=== PATIENT | female | born 2000 | race Caucasian/White ===

== ENCOUNTER → 2021-01-11 08:35 | Outpatient (CLI) | payer OTHER, MEDICAID, SELFPAY | PROVIDERS: Visit Provider Physician Assistant | DX: N89.8 Other specified noninflammatory disorders of vagina (principal); R30.0 Dysuria | CPT/HCPCS: 87086; 87210 ==

== ENCOUNTER → 2021-02-10 16:55 | Outpatient (CLI) | payer OTHER, MEDICAID, SELFPAY | PROVIDERS: Referring Provider Student in an Organized Health Care Education/Training Program; Visit Provider Student in an Organized Health Care Education/Training Program | DX: N39.0 Urinary tract infection, site not specified (principal); R30.9 Painful micturition, unspecified | CPT/HCPCS: 81002; 87086; 87210 ==

== ENCOUNTER → 2021-05-07 09:39 | Outpatient (CLI) | payer OTHER, SELFPAY ==
--- NOTE | 2021-05-07 09:52 | DI.RAD.S_ITS ---
PROCEDURE: XR LUMBAR SPINE 2-3V INDICATIONS: LUMBAR PAIN TECHNIQUE: 2 views of the lumbar spine were acquired. COMPARISON: None. FINDINGS: Bones: 5 [id number] vertebrae are present. There is normal bony alignment. No vertebral body compression fractures. No suspicious bony lesions. The disc space heights are maintained. Soft tissues: Overlying bowel gas pattern is normal. No suspicious soft tissue calcifications. IMPRESSION: No acute osseous abnormality. Dictated by: Angel Lovett M.D. on 05/07/2021 at 10:17 Approved by: Angel Lovett M.D. on 05/07/2021 at 10:21
== END ==
PROVIDERS: PCP Family Medicine; Referring Provider Family Medicine; Visit Provider Family Medicine
DX: M54.50 Low back pain, unspecified (principal)
CPT/HCPCS: 72100

== ENCOUNTER → 2021-05-17 15:36 | Outpatient (CLI) | payer OTHER, MEDICAID, SELFPAY | PROVIDERS: PCP Family Medicine; Referring Provider Physician Assistant; Visit Provider Physician Assistant | DX: R30.9 Painful micturition, unspecified (principal); N89.8 Other specified noninflammatory disorders of vagina | CPT/HCPCS: 81002; 81025; 87086; 87210 ==

== ENCOUNTER 2021-09-11 12:47 | Emergency (ER) | payer OTHER, MEDICAID, SELFPAY ==
[2021-09-11 12:50] VITALS: BP 135/63; PULSE 86; RESP 18; TEMP 36.4; O2SAT 98; BMI 31.1
[2021-09-11 14:06] LABS: Add Manual Diff / Slide Review NO; Basophils Absolute Auto 0 /uL (0-100); Basophils Percent Auto 0.4 % (0-2); Eosinophils Absolute Auto 300 /uL (0-450); Eosinophils Percent Auto 3.5 % (2-4); Hematocrit 36.9 % (36-46); Hemoglobin 12.5 g/dL (12.0-16.0); Lymphocytes Absolute Auto 2000 /uL (1100-4500); Lymphocytes Percent Auto 20.9 % (25-40); Mean Corpuscular HGB Conc 33.8 % (30-36); Mean Corpuscular Hemoglobin 27.9 PG (26-34); Mean Corpuscular Volume 82.3 fL (80-100); Monocytes Absolute Auto 900 /uL (0-900); Monocytes Percent Auto 9.3 % (3-14); Neutrophils Absolute Auto 6300 /uL (1500-7000); Neutrophils Percent Auto 65.9 % (50-75); Platelet Count 256 X10^3/uL (150-400); Red Blood Cell Count 4.49 X10^6/uL (4.0-5.2); White Blood Cell Count 9.5 X10^3/uL (4.5-11.0)
[2021-09-11 14:13] LABS: Alanine Aminotransferase 37 IU/L (<35); Albumin 4.3 g/dL (3.5-5.0); Albumin Globulin Ratio 1.5 (1.0-2.8); Alkaline Phosphatase 52 U/L (38-126); Aspartate Aminotransferase 36 IU/L (14-36); Bilirubin Total 0.2 mg/dL (0.2-1.3); Blood Urea Nitrogen 9 mg/dL (7-17); Calcium 9.3 mg/dL (8.4-10.2); Carbon Dioxide 28 mmol/L (22-32); Chloride 108 mmol/L (98-107); Estimated Glomerular Filt Rate > 60.0 mL/min (>60); Globulin 2.9 g/dL (1.7-4.1); Glucose 92 mg/dL (70-100); HEMOLYSIS < 15 (0-50); Lipase 79 U/L (23-300); Potassium 3.9 mmol/L (3.4-5.1); Sodium 140 mmol/L (137-145); Total Protein 7.2 g/dL (6.3-8.2)
--- NOTE | 2021-09-11 14:14 | DI.US.S_ITS ---
PROCEDURE: US PELVIC COMPLETE INDICATIONS: LLQ PAIN TECHNIQUE: Real-time scanning was performed of the pelvic organs, with image documentation. Additional endovaginal scanning was necessary due to incomplete visualization of the adnexal and endometrial structures by transabdominal scanning. COMPARISON: None. FINDINGS: Uterus: Uterus is retroverted and normal in size at 6.2 x 4.2 x 5.3 cm. The myometrium is homogeneous. No discrete uterine fibroids. The endometrium measures 15.6 mm combined thickness. No gross endometrial mass or fluid is seen. Ovaries: The right ovary measures 3.8 x 2.9 x 2.6 cm. The left ovary measures 4.2 x 3.1 x 3.5 cm. The ovaries have a normal sonographic appearance. 2 x 1.4 x 1.4 cm simple cyst is seen in right ovary. Multiple left ovarian cysts are seen measures up to 3.4 x 2.4 x 1.9 cm in size. Less than 12 follicles can be seen in each ovary. No adnexal masses are seen. Other: No pathologic free abdominal or pelvic fluid. IMPRESSION: Bilateral ovarian cysts as above. No solid appearing ovarian lesion. No evidence of ovarian torsion. Normal appearing uterus and endometrium. We strive to produce accurate, complete, and clear reports of imaging services. To assist us in improving patient care, this report was composed using standard report templates and voice recognition software. Therefore, it may contain abnormal punctuation, insertions and/or omissions. Occasional wrong-word or sound-alike substitutions may occur. Though we review the report and make efforts to correct it, we do recommend that the report be read carefully in proper context to recognize any text inaccuracies. Dictated by: Victoriano Good M.D. on 09/11/2021 at 15:23 Approved by: Victoriano Good M.D. on 09/11/2021 at 15:25
[2021-09-11 14:15] LABS: RBC Urine 0-1/HPF (0-5/HPF); Squamous Epithelial Cell Urine 5-10 /HPF (0-5/HPF); WBC Urine 5-10/HPF (0-5/HPF)
--- NOTE | 2021-09-11 14:15 | ED_ITS ---
HPI - Abdominal Pain <Renzo Weiss PA-C - Last Filed: 09/11/21 20:03> General Chief Complaint: Abdominal Pain Stated Complaint: Abd pain, bleeding out of rectum Time Seen by Provider: 09/11/21 13:40 Source: patient Mode of arrival: Ambulatory History of Present Illness HPI narrative: Patient is a 20-year-old female presenting to the emergency department today for an evaluation of abdominal pain and rectal bleeding. Patient states that she has experienced intermittent episodes of rectal bleeding since she was 15 years old, stating that she has not found a definitive cause of the bleeding. She also notes she has experienced intermittent episodes of abdominal pain for a number of years. She explains that she usually associated her increased rectal bleeding with herpes outbreaks, however she states that she is not experiencing an acute herpes flare at the moment. She states that she has also experienced nausea and vomiting this morning, noting that she experienced multiple episodes of nonbloody nonbilious emesis today. She denies fever, chills, chest pain, cough, shortness of breath, diarrhea, constipation, dysuria, hematuria, hematemesis, or any other concerning symptoms. No further concerns were voiced this time. Related Data Home Medications Medication Instructions Recorded Confirmed fluticasone propionate 50 1 spray INTRANASAL DAILY 01/11/21 05/17/21 mcg/actuation nasal spray,suspension loratadine 10 mg tablet (Claritin) 10 mg PO DAILY 01/11/21 05/17/21 methocarbamol 750 mg tablet 750 mg PO TID 01/11/21 05/17/21 oxycodone 5 mg tablet 5 mg PO BID PRN 01/11/21 05/17/21 Allergies Allergy/AdvReac Type Severity Reaction Status Date / Time Penicillins AdvReac Intermediate Verified 09/11/21 13:02 Review of Systems <Renzo Weiss PA-C - Last Filed: 09/11/21 20:03> Constitutional Constitutional: Denies chills, Denies fatigue, Denies fever(s), Denies frequent falls, Denies lethargy and Denies weakness Eyes Eyes: Denies loss of vision ENT Ears, Nose, Mouth, and Throat: Denies dizziness and Denies neck pain Cardiovascular Cardiovascular: Denies chest pain, Denies irregular heart rhythm, Denies lightheadedness, Denies palpitations, Denies dyspnea, Denies dyspnea on exertion and Denies orthopnea Respiratory Respiratory: Denies cough, Denies dyspnea, Denies dyspnea on exertion and Denies wheezing Gastrointestinal Gastrointestinal: Reports abdominal pain, Denies change in bowel habits, Denies diarrhea, Reports nausea, Reports vomiting, Denies hematemesis and Reports other (Rectal bleeding, LISA guaiac-positive) Genitourinary Genitourinary: Denies hematuria, Denies flank pain, Denies urinary incontinence and Denies urinary urgency Musculoskeletal Musculoskeletal: Denies back pain, Denies muscle weakness, Denies neck pain, Denies numbness and Denies tingling Integumentary/Breasts Skin/Breast: Denies pruritus, Denies erythema, Denies rash and Denies wounds Neurologic Neurologic: Denies behavioral changes, Denies confusion, Denies dizziness, Denies frequent falls, Denies loss of vision, Denies numbness, Denies tingling and Denies weakness Psychiatric Psychiatric: Denies behavioral changes and Denies confusion Endocrine Endocrine: Denies fatigue and Denies palpitations Allergic/Immunologic Allergic/Immunologic: Denies wheezing Patient History <Renzo Weiss PA-C - Last Filed: 09/11/21 20:03> Social History Smoking Status: Never smoker Smoking Status: Never smoker Substance Use Type: does not use Exam <Renzo Weiss PA-C - Last Filed: 09/11/21 20:03> Narrative Exam Narrative: GENERAL: 20 year old patient appears stated age. Well-developed patient, in no acute distress. HEAD: Atraumatic. Normocephalic. EYES: Pupils equal round and reactive. Extraocular motions intact. No scleral icterus. No injection or drainage. ENT: Nose without bleeding, purulent drainage. Throat without erythema, tonsillar hypertrophy or exudate. Airway patent. NECK: Trachea midline. Non tender CARDIOVASCULAR: Regular rate and rhythm without murmurs, gallops, or rubs. RESPIRATORY: Clear to auscultation. Breath sounds equal bilaterally. No wheezes, rales, or rhonchi. GASTROINTESTINAL: Abdomen soft, nondistended. Mild tenderness to palpation appreciated on the left lower quadrant of the abdomen and suprapubic area. No masses appreciated. Negative fluid wave, no splenomegaly or hepatomegaly. EXTREMITIES: No edema or joint tenderness. BACK: Nontender without deformity or crepitance. No flank tenderness. NEURO: AOx3. SKIN: No rash or erythema of visible areas Initial Vital Signs Initial Vital Signs: Vital Signs Temperature 97.6 F 09/11/21 12:50 Pulse Rate 86 09/11/21 12:50 Respiratory Rate 18 09/11/21 12:50 Blood Pressure 135/63 09/11/21 12:50 Pulse Oximetry 98 09/11/21 12:50 Course <Renzo Weiss PA-C - Last Filed: 09/11/21 20:03> Course Course Narrative: CBC, CMP, lipase, urinalysis, pelvic ultrasound ordered. Discussed results of ultrasound with patient informed her that she does have bilateral ovarian cysts. Discussed importance of following up with primary care and OBGYN. Orders Ordered: ED Orders 09/11/21 13:12 Complete Blood Count AUTO DIFF Stat Comprehensive Metabolic Panel Stat Lipase Stat 09/11/21 14:03 Urine Microscopic Stat 09/11/21 14:14 US pelvic complete Stat Vital Signs Vital signs: Vital Signs - 8 hr 09/11/21 12:50 09/11/21 16:05 Temperature 97.6 F Pulse Rate 86 79 Respiratory Rate 18 Blood Pressure 135/63 133/82 Pulse Oximetry 98 98 MDM - Abdominal Pain <Renzo Weiss PA-C - Last Filed: 09/11/21 20:03> Lab Data Result diagrams: 09/11/21 13:12 09/11/21 13:12 Labs: Lab Results 09/11/21 09/11/21 09/11/21 Range/Units 13:12 13:12 14:03 WBC 9.5 (4.5-11.0) X10^3/uL RBC 4.49 (4.0-5.2) X10^6/uL Hgb 12.5 (12.0-16.0) g/dL Hct 36.9 (36-46) % MCV 82.3 (80-100) fL MCH 27.9 (26-34) PG MCHC 33.8 (30-36) % RDW 13.0 (11.6-14.8) % Plt Count 256 (150-400) X10^3/uL Neut % (Auto) 65.9 (50-75) % Lymph % (Auto) 20.9 L (25-40) % [place] % (Auto) 9.3 (3-14) % Eos % (Auto) 3.5 (2-4) % Baso % (Auto) 0.4 (0-2) % Neut # (Auto) 6300 (0813-4314) /uL Lymph # (Auto) 2000 (1547-8954) /uL [place] # (Auto) 900 (0-900) /uL Eos # (Auto) 300 (0-450) /uL Baso # (Auto) 0 (0-100) /uL Sodium 140 (137-145) mmol/L Potassium 3.9 (3.4-5.1) mmol/L Chloride 108 H (98-107) mmol/L Carbon Dioxide 28 (22-32) mmol/L BUN 9 (7-17) mg/dL Creatinine 0.75 (0.52-1.04) mg/dL Estimated GFR > 60.0 (>60) mL/min BUN/Creatinine Ratio 12.0 (6-22) Glucose 92 (70-100) mg/dL Calcium 9.3 (8.4-10.2) mg/dL Total Bilirubin 0.2 (0.2-1.3) mg/dL AST 36 (14-36) IU/L ALT 37 H (<35) IU/L Alkaline Phosphatase 52 (38-126) U/L Total Protein 7.2 (6.3-8.2) g/dL Albumin 4.3 (3.5-5.0) g/dL Globulin 2.9 (1.7-4.1) g/dL Albumin/Globulin Ratio 1.5 (1.0-2.8) Lipase 79 (23-300) U/L Urine RBC 0-1/hpf (0-5/HPF) Urine WBC 5-10/hpf H (0-5/HPF) Ur Squamous Epith Cells 5-10 /hpf H (0-5/HPF) Urine Bacteria Moderate (10-30) H (None) Ur Culture Indicated? Cult not indicated Point of care testing: Point of Care Testing Test Results Negative Urine Dip Bedside Urine Glucose Negative Bedside Urine Bilirubin - Negative Bedside Urine Ketone - Negative Urine Specific [place] 1.015 Bedside Urine Occult Blood - Negative Bedside Urine pH 6.5 Bedside Urine Protein - Negative Bedside Urine Urobilinogen - Negative Bedside Urine Nitrite - Negative Bedside Urine Leukocytes +/- 15 Esterase Imaging Data US - SUPERVISOR TRAIN OPERATIONS: Radiologist's Impression: PROCEDURE:? US PELVIC COMPLETE ? INDICATIONS:? LLQ PAIN ? TECHNIQUE:? Real-time scanning was performed of the pelvic organs, with image documen tation.? Additional endovaginal scanning was necessary due to incomplete visualization of the adnexal and endometrial structures by transabdominal scanning.? ? COMPARISON:? None. ? FINDINGS:? ?? Uterus:? Uterus is retroverted and normal in size at 6.2 x 4.2 x 5.3 cm. The myometrium is homogeneous.? No discrete uterine fibroids.? The endometrium measures 15.6 mm combined thickness.? No gross endometrial mass or fluid is seen. ? Ovaries:? The right ovary measures 3.8 x 2.9 x 2.6 cm.? The left ovary measures 4.2 x 3.1 x 3.5 cm. The ovaries have a normal sonographic appearance.? 2 x 1.4 x 1.4 cm s imple cyst is seen in right ovary.? Multiple left ovarian cysts are seen measures up to 3.4 x 2.4 x 1.9 cm in size.? Less than 12 follicles can be seen in each ovary.? No adnexal masses are seen. ? Other:? No pathologic free abdominal or pelvic fluid. ? ? IMPRESSION:? Bilateral ovarian cysts as above.? No solid appearing ovarian lesion.? No evidence of ovarian torsion.? Normal appearing uterus and endometrium. ? ? We strive to produce accurate, complete, and clear reports of imaging services. To assist us in improving patient care, this report was composed using standard report templates and voice recognition software. Therefore, it may contain abnormal punctuation, insertions and/or omissions. Occasional wrong-word or sound-alike substitutions may occur. Though we review the report and make efforts to correct it, we do recommend that the report be read carefully in proper context to recognize any text inaccuracies. ? ? Dictated by: Victoriano Good M.D. on 09/11/2021 at 15:23 ? ? Approved by: Victoriano Good M.D. on 09/11/2021 at 15:25 ? MDM Narrative Medical decision making narrative: Differential diagnosis to consider but not limited to ovarian cyst versus appendicitis versus urinary tract infection verses diverticulosis versus diverticulitis versus hemorrhoids. Discussed results of lab studies and imaging with patient. Informed her that ultrasound did show signs of bilateral ovarian cysts and encouraged her to follow-up with her OBGYN regarding this finding. Additionally, I discussed the fact that digital rectal examination digit signs of blood in the stool and I stressed the importance following up with the primary care provider to set up a colonoscopy going forward. Patient expresses understanding and agrees to plan. She states at this time that she is comfortable being discharged home and is stable for discharge. Strict return precautions were discussed with the patient prior to discharge. Discharge Plan Departure Patient Disposition: Home Clinical Impression: Bilateral ovarian cysts, Blood in stool Instructions: DI for Ovarian Cyst Activity Restrictions/Additional Instructions: *You have been diagnosed with bilateral ovarian cyst, blood in stool *What to do: *Please continue to take your regular medications as directed. [ ] New medication prescriptions sent to your pharmacy: [ ] [ ] New medication written as a paper prescription [X] No new medications given You were evaluated in the emergency department today for blood in your stool and abdominal pain. Ultrasound imaging obtained in the emergency department today did show left and right ovarian cysts. Digital rectal examination did show sign blood in your stool. It is important that you follow-up with the primary care provider regarding this finding to possibly set up a colonoscopy. The remainder of your lab studies were benign and did not show signs of acute abnormality. Please follow-up with the primary care provider within the next 2-3 days for further evaluation and management. Do not hesitate to return to the emergency department if you experience increased rectal bleeding, dizziness, loss of consciousness, worsening abdominal pain, or any other concerning symptoms. *Please follow up with your primary care provider in 2-3 days, call for an appointment. Let them know you were seen in the Emergency Department and that we ask that you be seen in follow up. We will electronically transmit a record of today's note if your PCP is in our system *If you do not have a primary care provider please contact the [facility] Resource line at [phone]. They will ask some questions about your medical history and help get you set up with a doctor in the community. *Return to Emergency Department if you should have any new, worsening or concerning symptoms, such as fever greater than 101 F, shaking chills, worsening pain, persistent vomiting or other bothersome symptoms. Prescriptions: No Action methocarbamol 750 mg tablet 750 mg PO TID 0RF oxycodone 5 mg tablet 5 mg PO BID PRN0RF loratadine [Claritin] 10 mg tablet 10 mg PO DAILY 0RF fluticasone propionate 50 mcg/actuation spray,suspension 1 spray intranasal DAILY 0RF Rx Instructions: administer into each nostril Referrals: Mikhail Garcia MD [Primary Care Provider] -
[2021-09-11 14:16] LABS: Bacteria Urine Moderate (10-30); Culture Indicated Urine Cult Not Indicated
[2021-09-11 16:05] VITALS: BP 133/82; PULSE 79; O2SAT 98
== END 2021-09-11 16:08 | disposition home or self-care (01) ==
PROVIDERS: Emergency Medicine; Emergency Provider Physician Assistant; Family Provider Family Medicine; PCP Family Medicine
DX: N83.202 Unspecified ovarian cyst, left side (principal); N83.201 Unspecified ovarian cyst, right side; K92.1 Melena
CPT/HCPCS: 36415; 76856; 80053; 81003; 81015; 81025; 83690; 85025; 99284

== ENCOUNTER 2021-10-23 14:34 | Emergency (ER) | payer OTHER, MEDICAID, SELFPAY ==
[2021-10-23 14:53] VITALS: BP 136/81; PULSE 79; RESP 19; TEMP 36.7; O2SAT 99; BMI 29.7
[2021-10-23] MEDS: ONDANSETRON 4 MG/2 ML INJ IV (16:32)
[2021-10-23 16:37] LABS: Add Manual Diff / Slide Review NO; Basophils Absolute Auto 0 /uL (0-100); Basophils Percent Auto 0.4 % (0-2); Eosinophils Absolute Auto 200 /uL (0-450); Eosinophils Percent Auto 2.3 % (2-4); Hematocrit 40.4 % (36-46); Hemoglobin 13.7 g/dL (12.0-16.0); Lymphocytes Absolute Auto 1700 /uL (1100-4500); Mean Corpuscular HGB Conc 33.9 % (30-36); Mean Corpuscular Hemoglobin 27.4 PG (26-34); Mean Corpuscular Volume 80.6 fL (80-100); Monocytes Absolute Auto 1100 /uL (0-900); Monocytes Percent Auto 16.8 % (3-14); Neutrophils Absolute Auto 3700 /uL (1500-7000); Neutrophils Percent Auto 55.5 % (50-75); Platelet Count 237 X10^3/uL (150-400); Red Blood Cell Count 5.01 X10^6/uL (4.0-5.2); White Blood Cell Count 6.7 X10^3/uL (4.5-11.0)
[2021-10-23 16:42] LABS: Bacteria Urine None Seen; RBC Urine 1-5/HPF (0-5/HPF); Squamous Epithelial Cell Urine 5-10 /HPF (0-5/HPF); WBC Urine 5-10/HPF (0-5/HPF)
[2021-10-23 16:43] LABS: Culture Indicated Urine Specimen Cultured
[2021-10-23] MEDS: SODIUM CHLORIDE 0.9% 1,000 ML 1000 ML IV (16:48)
[2021-10-23 17:10] LABS: Alanine Aminotransferase 170 IU/L (<35); Albumin 4.5 g/dL (3.5-5.0); Albumin Globulin Ratio 1.4 (1.0-2.8); Alkaline Phosphatase 61 U/L (38-126); Aspartate Aminotransferase 149 IU/L (14-36); BUN Creatinine Ratio 10.3 (6-22); Bilirubin Total 0.8 mg/dL (0.2-1.3); Blood Urea Nitrogen 9 mg/dL (7-17); Calcium 8.8 mg/dL (8.4-10.2); Carbon Dioxide 25 mmol/L (22-32); Chloride 106 mmol/L (98-107); Estimated Glomerular Filt Rate > 60 mL/min (>60); Globulin 3.2 g/dL (1.7-4.1); Glucose 83 mg/dL (70-100); HEMOLYSIS < 15 (0-50); Lipase 73 U/L (23-300); Potassium 3.4 mmol/L (3.4-5.1); Sodium 143 mmol/L (137-145); Total Protein 7.7 g/dL (6.3-8.2)
--- NOTE | 2021-10-23 17:45 | ED_ITS ---
HPI - Nausea/Vomiting/Diarrhea <URI De La Rosa - Last Filed: 10/23/21 18:59> General Chief complaint: Nausea/Vomiting/Diarrhea Stated complaint: Uncontrollable diarrhea x 4 days, some vomiting Time Seen by Provider: 10/23/21 17:07 Source: patient Mode of arrival: Family Vehicle History of Present Illness HPI Narrative: To the emergency department stating that she has had diarrhea for the last 4 days with vomiting x2, she endorses having nausea and states that she feels dehydrated. Patient endorsed some dysuria and urinary urgency, she denies any hematuria, blood in her stool, or blood in her emesis. She denies any recent fever, she denies any flank pain or back pain. She denies any abnormal vaginal discharge, she denies any pelvic pain, she denies any vomiting today, states the last emesis was 2 nights ago. Related Data Home Medications Medication Instructions Recorded Confirmed fluticasone propionate 50 1 spray INTRANASAL DAILY 01/11/21 05/17/21 mcg/actuation nasal spray,suspension loratadine 10 mg tablet (Claritin) 10 mg PO DAILY 01/11/21 05/17/21 methocarbamol 750 mg tablet 750 mg PO TID 01/11/21 05/17/21 oxycodone 5 mg tablet 5 mg PO BID PRN 01/11/21 05/17/21 Previous Rx's Medication Instructions Recorded ondansetron 4 mg disintegrating 4 mg PO Q8H PRN #10 tab 10/23/21 tablet phenazopyridine 100 mg tablet 100 mg PO TID PRN #7 tab 10/23/21 (Pyridium) phenazopyridine 100 mg tablet 100 mg PO TID PRN #7 tab 10/23/21 (Pyridium) sulfamethoxazole 800 1 tab PO BID 5 Days #10 tab 10/23/21 mg-trimethoprim 160 mg tablet (Bactrim DS) Allergies Allergy/AdvReac Type Severity Reaction Status Date / Time Penicillins AdvReac Intermediate Verified 10/23/21 14:53 Review of Systems <URI De La Rosa - Last Filed: 10/23/21 18:59> Review of Systems Narrative: General: denies fever, chills, malaise, sweats, fatigue Head/Neck: denies headache, neck pain, dizziness Eyes: denies visual changes, eye pain Cardio: denies chest pain, palpitations, edema Respiratory: denies dyspnea, cough, orthopnea GI: denies abdominal pain, endorses nausea, vomiting, and diarrhea : endorses dysuria, denies hematuria, urinary retention, frequency or incontinence MSK: denies joint pain, muscle weakness Skin: denies rash, itching, skin lesions or other Neuro: denies numbness, tingling Patient History <URI De La Rosa - Last Filed: 10/23/21 18:59> Social History Smoking Status: Never smoker Smoking Status: Never smoker alcohol intake frequency: holidays/special occasions only Substance Use Type: does not use Exam <URI De La Rosa - Last Filed: 10/23/21 18:59> Narrative Exam Narrative: Independently reviewed vitals signs and nursing notes. General: cooperative, comfortable, in no acute distress, well developed and well groomed Head: atraumatic, symmetrical facial expressions Neck: supple, atraumatic, without lymphadenopathy. Eyes: pupils equal round and reactive, EOMI, conjunctiva normal Nose: nares patent, no rhinorrhea Mouth/Throat: moist mucus membranes Cardiovascular: regular rate and rhythm, no peripheral edema, warm extremities Respiratory: normal effort, able to speak in complete sentences, no audible wheezing, stridor, or rales. No retractions or tachypnea. GI: abdomen soft, nontender to palpation, nondistended, no masses, no exquisite tenderness with exam, without guarding or rebound. Patient is unable to leave a stool sample today, she has tried multiple times. MSK: moves all extremities, ambulatory w/steady gait, neurovascularly intact, no weakness Skin: brisk capillary refill, no rash, no erythema Neuro: normal speech and cognition, A&O x3, normal tone Psych: mental status is grossly normal, congruent mood, normal affect, pleasant and cooperative Initial Vital Signs Initial Vital Signs: Vital Signs Temperature 98.1 F 10/23/21 14:53 Pulse Rate 79 10/23/21 14:53 Respiratory Rate 19 10/23/21 14:53 Blood Pressure 136/81 10/23/21 14:53 Pulse Oximetry 99 10/23/21 14:53 <Azalia Ballesteros MD - Last Filed: 10/24/21 07:41> Initial Vital Signs Initial Vital Signs: Vital Signs Temperature 98.1 F 10/23/21 14:53 Pulse Rate 79 10/23/21 14:53 Respiratory Rate 19 10/23/21 14:53 Blood Pressure 136/81 10/23/21 14:53 Pulse Oximetry 99 10/23/21 14:53 Course <URI De La Rosa - Last Filed: 10/23/21 18:59> Orders Ordered: Discontinued Medications Sodium Chloride (Normal Saline 0.9%) 1,000 mls @ 1,000 mls/hr IV BOLUS ONE Stop: 10/23/21 17:33 Last Infusion: 10/23/21 18:26 Dose: 0 mls/hr Documented by: Admin: 10/23/21 16:48 Dose: 1,000 mls/hr Documented by: MORGAN Ondansetron HCl (Ondansetron 4 Mg/2 Ml Inj) 4 mg IV NOW ONE Stop: 10/23/21 16:28 Last Admin: 10/23/21 16:32 Dose: 4 mg Documented by: MORGAN Trimethoprim/Sulfamethoxazole (Trimeth/Sulfa 160/800 (Ds) Tablet) 1 tab PO NOW ONE Stop: 10/23/21 18:48 Last Admin: 10/23/21 18:58 Dose: 1 tab Documented by: MORGAN Vital Signs Vital signs: Vital Signs - 8 hr 10/23/21 14:53 Temperature 98.1 F Pulse Rate 79 Respiratory Rate 19 Blood Pressure 136/81 Pulse Oximetry 99 <Azalia Ballesteros MD - Last Filed: 10/24/21 07:41> Orders Ordered: Discontinued Medications Sodium Chloride (Normal Saline 0.9%) 1,000 mls @ 1,000 mls/hr IV BOLUS ONE Stop: 10/23/21 17:33 Last Infusion: 10/23/21 18:26 Dose: 0 mls/hr Documented by: Admin: 10/23/21 16:48 Dose: 1,000 mls/hr Documented by: MORGAN Ondansetron HCl (Ondansetron 4 Mg/2 Ml Inj) 4 mg IV NOW ONE Stop: 10/23/21 16:28 Last Admin: 10/23/21 16:32 Dose: 4 mg Documented by: MORGAN Trimethoprim/Sulfamethoxazole (Trimeth/Sulfa 160/800 (Ds) Tablet) 1 tab PO NOW ONE Stop: 10/23/21 18:48 Last Admin: 10/23/21 18:58 Dose: 1 tab Documented by: MORGAN Vital Signs Vital signs: Vital Signs - 8 hr 10/23/21 14:53 Temperature 98.1 F Pulse Rate 79 Respiratory Rate 19 Blood Pressure 136/81 Pulse Oximetry 99 MDM - Nausea/Vomiting/Diarrhea <URI De La Rosa - Last Filed: 10/23/21 18:59> Lab Data Result diagrams: 10/23/21 16:23 10/23/21 16:23 Labs: Lab Results 10/23/21 10/23/21 10/23/21 Range/Units 16:09 16:23 16:23 WBC 6.7 (4.5-11.0) X10^3/uL RBC 5.01 (4.0-5.2) X10^6/uL Hgb 13.7 (12.0-16.0) g/dL Hct 40.4 (36-46) % MCV 80.6 (80-100) fL MCH 27.4 (26-34) PG MCHC 33.9 (30-36) % RDW 13.0 (11.6-14.8) % Plt Count 237 (150-400) X10^3/uL Neut % (Auto) 55.5 (50-75) % Lymph % (Auto) 25.0 (25-40) % Cass % (Auto) 16.8 H (3-14) % Eos % (Auto) 2.3 (2-4) % Baso % (Auto) 0.4 (0-2) % Neut # (Auto) 3700 (6427-2893) /uL Lymph # (Auto) 1700 (9976-0912) /uL Cass # (Auto) 1100 H (0-900) /uL Eos # (Auto) 200 (0-450) /uL Baso # (Auto) 0 (0-100) /uL Sodium 143 (137-145) mmol/L Potassium 3.4 (3.4-5.1) mmol/L Chloride 106 (98-107) mmol/L Carbon Dioxide 25 (22-32) mmol/L BUN 9 (7-17) mg/dL Creatinine 0.87 (0.52-1.04) mg/dL Estimated GFR > 60 (>60) mL/min BUN/Creatinine Ratio 10.3 (6-22) Glucose 83 (70-100) mg/dL Calcium 8.8 (8.4-10.2) mg/dL Total Bilirubin 0.8 (0.2-1.3) mg/dL AST 149 H (14-36) IU/L ALT 170 H (<35) IU/L Alkaline Phosphatase 61 (38-126) U/L Total Protein 7.7 (6.3-8.2) g/dL Albumin 4.5 (3.5-5.0) g/dL Globulin 3.2 (1.7-4.1) g/dL Albumin/Globulin Ratio 1.4 (1.0-2.8) Lipase 73 (23-300) U/L Urine RBC 1-5/hpf (0-5/HPF) Urine WBC 5-10/hpf H (0-5/HPF) Ur Squamous Epith Cells 5-10 /hpf H (0-5/HPF) Urine Bacteria None seen (None) Ur Culture Indicated? Specimen cultured Point of Care Testing Test Results Negative Urine Dip Bedside Urine Glucose Negative Bedside Urine Bilirubin - Negative Bedside Urine Ketone - Negative Urine Specific Sayre 1.03 Bedside Urine Occult Blood - Negative Bedside Urine pH 5.5 Bedside Urine Protein - Negative Bedside Urine Urobilinogen - Negative Bedside Urine Nitrite - Negative Bedside Urine Leukocytes + 70 Esterase MDM Narrative Medical decision making narrative: This is a 20-year-old female who presents to the emergency department for nausea, vomiting, and diarrhea for the last 4 days. She states that she has had increasing episodes of diarrhea, denies any blood in her stool. She endorses dysuria with urinary urgency, denies any pelvic pain. Last menstrual period was 25 days ago states that she has regular periods and also has a history of PCOS. Patient's UA today shows a moderate amount of leukocytes, culture is pending. Lab workup does not show any leukocytosis, no gross electrolyte abnormality, her AST and ALT are elevated from her last visit, AST is 149, previously is 36, ALT is 170, previously 37. Urine is negative. Patient is non tender in the right upper abdomen and her T bilirubin is 0.8, lipase is 73. I suspect that this is acute cystitis without hematuria and likely gastroenteritis. Patient was unable to leave a stool sample today for a GI panel but she is nontoxic appearing, without abnormal vital signs, tolerating p.o. fluids and has Zofran at home. Recommend she have close follow-up with her primary care provider, she was prescribed Bactrim for UTI, no prior cultures with resistance on record. No peritoneal signs on abdominal exam. Patient remains p.o. tole rant. Serial abdominal exam without increase in abdominal pain. Given history and exam, low suspicion for acute abdominal process, such as acute cholecystitis, pancreatitis, perforated viscus, atypical appendicitis, colitis, diverticulitis or torsion. Extensive conversation about ER return precautions and need for close follow-up. Patient is appropriate and amenable to discharge home. Vital signs are stable on repeat examination is unremarkable. Patient has been informed of results. Patient has been given strict return to ER precautions for any new or worsening symptoms. Patient understands to follow up closely with outpatient providers as instructed. Patient understands plan and agrees to discharge home. All questions and concerns answered at this time. <Azalia Ballesteros MD - Last Filed: 10/24/21 07:41> Lab Data Labs: Lab Results 10/23/21 10/23/21 10/23/21 Range/Units 16:09 16:23 16:23 WBC 6.7 (4.5-11.0) X10^3/uL RBC 5.01 (4.0-5.2) X10^6/uL Hgb 13.7 (12.0-16.0) g/dL Hct 40.4 (36-46) % MCV 80.6 (80-100) fL MCH 27.4 (26-34) PG MCHC 33.9 (30-36) % RDW 13.0 (11.6-14.8) % Plt Count 237 (150-400) X10^3/uL Neut % (Auto) 55.5 (50-75) % Lymph % (Auto) 25.0 (25-40) % Cass % (Auto) 16.8 H (3-14) % Eos % (Auto) 2.3 (2-4) % Baso % (Auto) 0.4 (0-2) % Neut # (Auto) 3700 (7222-4604) /uL Lymph # (Auto) 1700 (6042-7419) /uL Cass # (Auto) 1100 H (0-900) /uL Eos # (Auto) 200 (0-450) /uL Baso # (Auto) 0 (0-100) /uL Sodium 143 (137-145) mmol/L Potassium 3.4 (3.4-5.1) mmol/L Chloride 106 (98-107) mmol/L Carbon Dioxide 25 (22-32) mmol/L BUN 9 (7-17) mg/dL Creatinine 0.87 (0.52-1.04) mg/dL Estimated GFR > 60 (>60) mL/min BUN/Creatinine Ratio 10.3 (6-22) Glucose 83 (70-100) mg/dL Calcium 8.8 (8.4-10.2) mg/dL Total Bilirubin 0.8 (0.2-1.3) mg/dL AST 149 H (14-36) IU/L ALT 170 H (<35) IU/L Alkaline Phosphatase 61 (38-126) U/L Total Protein 7.7 (6.3-8.2) g/dL Albumin 4.5 (3.5-5.0) g/dL Globulin 3.2 (1.7-4.1) g/dL Albumin/Globulin Ratio 1.4 (1.0-2.8) Lipase 73 (23-300) U/L Urine RBC 1-5/hpf (0-5/HPF) Urine WBC 5-10/hpf H (0-5/HPF) Ur Squamous Epith Cells 5-10 /hpf H (0-5/HPF) Urine Bacteria None seen (None) Ur Culture Indicated? Specimen cultured Point of Care Testing Test Results Negative Urine Dip Bedside Urine Glucose Negative Bedside Urine Bilirubin - Negative Bedside Urine Ketone - Negative Urine Specific Sayre 1.03 Bedside Urine Occult Blood - Negative Bedside Urine pH 5.5 Bedside Urine Protein - Negative Bedside Urine Urobilinogen - Negative Bedside Urine Nitrite - Negative Bedside Urine Leukocytes + 70 Esterase Discharge Plan Departure Patient Disposition: Home Clinical Impression: UTI (urinary tract infection) Qualifiers: Hematuria presence: without hematuria Diarrhea Qualifiers: Diarrhea type: unspecified type Qualified Code(s): R19.7 - Diarrhea, unspecified Instructions: Urinary Tract Infection, Diarrhea Activity Restrictions/Additional Instructions: *You have been diagnosed with a UTI, and diarrhea. Please continue to try stay hydrated with electrolyte beverages. Take Zofran every 8 hours as needed for nausea and vomiting. Please wait 15-20 minutes afterwards and then hydrate. Stick to a bland foods that are low in fat, low acidity, and low caffeine. Please follow-up with your primary care provider if you have ongoing diarrhea, with a fever, and if there is blood in your stool. I suspect that your diarrhea is related to a viral illness and this should resolve within a couple of days. If it does not, please follow-up with your primary care provider for a stool evaluation. Thank you for trusting us with your care, I hope you feel better soon. *What to do: *Please continue to take your regular medications as directed. [x ] New medication prescriptions sent to your pharmacy: [ [facility]] [ ] New medication written as a paper prescription [ ] No new medications given *Please follow up with your primary care provider in 2-3 days, call for an martine ointment. Let them know you were seen in the Emergency Department and that we asked that you be seen for follow-up. We will electronically transmit a record of today's note if your PCP is in our system *If you do not have a primary care provider please contact [phone] to establish care with one of the [facility] primary care providers. *Return to Emergency Department if you should have any new, worsening or concerning symptoms, such as [fever greater than 101F, chills, worsening pain, persistent vomiting or other bothersome symptoms] Prescriptions: New sulfamethoxazole-trimethoprim [Bactrim DS] 800-160 mg tablet 1 tab PO BID 5 Days Qty: 10 0RF phenazopyridine [Pyridium] 100 mg tablet 100 mg PO TID PRN (Reason: pain) Qty: 7 0RF ondansetron 4 mg tablet,disintegrating 4 mg PO Q8H PRN (Reason: nausea and vomiting) Qty: 10 0RF phenazopyridine [Pyridium] 100 mg tablet 100 mg PO TID PRN (Reason: pain) Qty: 7 0RF No Action methocarbamol 750 mg tablet 750 mg PO TID 0RF oxycodone 5 mg tablet 5 mg PO BID PRN0RF loratadine [Claritin] 10 mg tablet 10 mg PO DAILY 0RF fluticasone propionate 50 mcg/actuation spray,suspension 1 spray intranasal DAILY 0RF Rx Instructions: administer into each nostril Referrals: Mikhail Garcia MD [Primary Care Provider] - <Azalia Ballesteros MD - Last Filed: 10/24/21 07:41> Cosign ED Attending Cosignature Attestation: I was immediately available in the department for consultation throughout this patient's visit. I agree with documentation as above. Azalia Ballesteros MD
[2021-10-23] MEDS: TRIMETH/SULFA 160/800 (DS) TABLET 1 TAB PO (18:58)
[2021-10-23 19:03] VITALS: BP 131/67; PULSE 73; RESP 16; O2SAT 100
--- NOTE | 2021-10-24 10:52 | PC.NURSE ---
Patient called ED asking about if she needed to come in to leave a stool sample, since she was unable to provide one during her ED visit yesterday. Spoke with Dr. Azalia Ballesteros who advised GI panel can be done outpatient through patient's PCP. Advised patient of this and emphasized return precautions. Educated patient on use of her prescribed Zofran and advised to start out on clear liquid diet and advance to BRAT diet as tolerated.Patient demonstrates understanding and states she will follow up with PCP.
== END 2021-10-23 19:04 | disposition home or self-care (01) ==
PROVIDERS: Emergency Medicine; Emergency Provider Nurse Practitioner Critical Care Medicine; Family Provider Family Medicine; PCP Family Medicine
DX: N39.0 Urinary tract infection, site not specified (principal); R19.7 Diarrhea, unspecified; Z88.0 Allergy status to penicillin
CPT/HCPCS: 36415; 80053; 81003; 81015; 81025; 83690; 85025; 87086; 96361; 96374; 99284; J2405

== ENCOUNTER 2021-12-02 16:45 | Outpatient (RCR) | payer OTHER, MEDICAID, SELFPAY ==
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
--- NOTE | 2021-11-24 11:11 | PT-OP ANOTE ---
Pt no-showed to 11/24/21 appointment. Therapist phoned to discuss, pt very apologetic, she thought her appointment was the following day. Pt reminded of date and time of next scheduled visit.
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
== END 2021-12-29 14:06 ==
LOC: PHYS 16:45
PROVIDERS: Family Provider Family Medicine; PCP Family Medicine; Referring Provider Family Medicine; Visit Provider Family Medicine
DX: M54.50 Low back pain, unspecified (principal); V89.2XXD Person injured in unspecified motor-vehicle accident, traffic, subsequent encounter
CPT/HCPCS: 97014; 97110; 97140; 97162; 97530; G0283

== ENCOUNTER → 2022-04-03 10:50 | Outpatient (CLI) | payer OTHER, MEDICAID, SELFPAY ==
[2022-04-03 11:18] LABS: Pregnancy Test Urine Negative (Negative)
[2022-04-03 11:22] LABS: Bacteria Urine Few (2-10); Culture Indicated Urine Specimen Cultured; RBC Urine 5-10/HPF (0-5/HPF); Squamous Epithelial Cell Urine 1-5 /HPF (0-5/HPF); WBC Urine 1-5/HPF (0-5/HPF)
[2022-04-03 12:44] LABS: Urine N gonorrhoeae NOT DETECTED
[2022-04-03 12:55] LABS: Urine Chlamydia NOT DETECTED
== END ==
PROVIDERS: Family Provider Family Medicine; PCP Family Medicine; Visit Provider Nurse Practitioner Critical Care Medicine
DX: N89.8 Other specified noninflammatory disorders of vagina (principal); R30.0 Dysuria; N39.0 Urinary tract infection, site not specified; N76.0 Acute vaginitis
CPT/HCPCS: 81002; 81015; 81025; 87086; 87210; 87491; 87591

== ENCOUNTER → 2022-08-04 17:45 | Outpatient (CLI) | payer OTHER, SELFPAY ==
--- NOTE | 2022-08-04 17:48 | DI.RAD.S_ITS ---
PROCEDURE: XR SHOULDER LT MIN 2V INDICATIONS: Left shoulder injury - L I TECHNIQUE: Three views of the shoulder were acquired. COMPARISON: None. FINDINGS: Bones: No fractures or dislocations. No suspicious bony lesions. Visualized ribs appear intact. Soft tissues: No suspicious soft tissue calcifications. IMPRESSION: Intact left shoulder. Dictated by: Pao White M.D. on 08/04/2022 at 18:07 Approved by: Pao White M.D. on 08/04/2022 at 18:07
== END ==
PROVIDERS: Family Provider Family Medicine; PCP Family Medicine; Referring Provider Registered Nurse; Visit Provider Registered Nurse
DX: M25.512 Pain in left shoulder (principal)
CPT/HCPCS: 73030

== ENCOUNTER → 2022-11-18 12:39 | Outpatient (CLI) | payer OTHER, MEDICAID, SELFPAY | PROVIDERS: Family Provider Family Medicine; PCP Family Medicine; Visit Provider Nurse Practitioner Family | DX: N39.0 Urinary tract infection, site not specified (principal); N89.8 Other specified noninflammatory disorders of vagina | CPT/HCPCS: 81002; 87086; 87210 ==

== ENCOUNTER → 2022-12-09 13:39 | Outpatient (CLI) | payer OTHER, MEDICAID, SELFPAY | PROVIDERS: Family Provider Family Medicine; PCP Family Medicine; Visit Provider Nurse Practitioner Family | DX: J02.9 Acute pharyngitis, unspecified (principal) | CPT/HCPCS: 87070 ==

== ENCOUNTER 2023-01-04 17:12 | Emergency (ER) | payer OTHER, MEDICAID, SELFPAY ==
[2023-01-04 17:38] VITALS: BP 133/75; PULSE 105; RESP 16; TEMP 36.5; O2SAT 97; BMI 29.5
--- NOTE | 2023-01-04 18:27 | DI.US.S_ITS ---
PROCEDURE: US OB <= 14 WEEKS FETUS INDICATIONS: CRAMPING AND SPOTTING. POLYCYSTIC OVARIAN SYNDROME. OUTSIDE/PRIOR DATING DATA: Last menstrual period (LMP): 11/04/2022. LMP-based estimated date of delivery (STELLA): 08/31/2023. TECHNIQUE: Real-time scanning was performed of the fetus and maternal pelvic organs, with image documentation. Endovaginal scanning was also performed to better visualize the fetus and maternal ovaries. COMPARISON: None. FINDINGS: Reported positive test. A thickened endometrium is seen measuring 24 mm. No gestational sac identified. Suspected arcuate configuration. Color flows are seen in the ovaries. Possible hemorrhagic left adnexal cyst. No discrete adnexal sac or mass. Anechoic moderate simple appearing free fluid is seen throughout the pelvis. IMPRESSION: of unknown location. Thickened endometrium measuring 24 mm. No intrauterine gestational sac. Moderate free fluid is seen throughout the pelvis, simple appearing on ultrasound. Short interval follow-up imaging and laboratory correlation is recommended. Dictated by: Kaleb Cervantes M.D. on 01/04/2023 at 19:47 Approved by: Kaleb Cervantes M.D. on 01/04/2023 at 19:51
[2023-01-04 18:32] LABS: RBC Urine None Seen (0-5/HPF)
[2023-01-04 18:33] LABS: Bacteria Urine Moderate (10-30); Culture Indicated Urine Specimen Cultured; Squamous Epithelial Cell Urine 1-5 /HPF (0-5/HPF); WBC Urine 10-30/HPF (0-5/HPF)
--- NOTE | 2023-01-04 18:41 | ED_ITS ---
HPI - Female Genitourinary General Chief complaint: Abdominal Pain Stated complaint: Abd pain, hx PCOS, says might be cyst Time Seen by Provider: 01/04/23 18:27 Source: patient Mode of arrival: Ambulatory History of Present Illness HPI Narrative: Patient is a 22-year-old female history of PCOS on metformin presenting today with lower abdominal pain and cramping. She is having some dysuria. She reports that she has a new partner she is had chlamydia twice she is requesting STD testing. Last menstrual cycle was November 24 however she reports significant irregularity. She had some cramping in her lower abdomen and a little bit of pink tinging spotting. She is found to be on her POC which is a surprise. Denies fever chills or back pain Related Data Home Medications Medication Instructions Recorded Confirmed tramadol 50 mg tablet 50 mg PO TID PRN 04/21/22 04/21/22 Previous Rx's Medication Instructions Recorded phenazopyridine 200 mg tablet 200 mg PO TID 6 doses #6 tabs 11/18/22 (Pyridium) metronidazole 1.3 % (65 mg/5 gram) 1 appful vaginal BEDTIME 1 dose #5 11/25/22 vaginal gel grams nitrofurantoin 100 mg PO Q12H 5 days #10 caps 01/04/23 monohydrate/macrocrystals 100 mg capsule (Macrobid) Allergies Allergy/AdvReac Type Severity Reaction Status Date / Time Penicillins AdvReac Intermediate Verified 04/21/22 10:31 Review of Systems Review of Systems ROS Unobtainable: All systems reviewed & are unremarkable except as noted in HPI and below Patient History alcohol intake frequency: holidays/special occasions only Substance Use Type: does not use Exam Initial Vital Signs Initial Vital Signs: Vital Signs Temperature 97.7 F 01/04/23 17:38 Pulse Rate 105 H 01/04/23 17:38 Respiratory Rate 16 01/04/23 17:38 Blood Pressure 133/75 01/04/23 17:38 Pulse Oximetry 97 01/04/23 17:38 Oxygen Delivery Method Room Air 01/04/23 17:38 GENERAL: Alert pleasant well-appearing female and in no acute distress. HEENT: Head atraumatic,EOMI, pupils reactive, face symmetric, moist mucous membranes CARDIOVASCULAR: Regular rate and rhythm without murmurs, rubs or gallops. RESPIRATORY: Breath sounds equal bilaterally, no wheezes rales or rhonchi. ABDOMEN: Soft, nontender. Normoactive bowel sounds all 4 quadrants. No guarding or rebound. : No CVA tenderness EXTREMITIES: Normal range of motion, no clubbing or edema. Neurovascularly intact NEUROLOGICAL: Alert and oriented x4. SKIN: Warm, dry, no laceration, no petechiae, no rashes or lesions. Course Orders Ordered: Discontinued Medications Azithromycin (Azithromycin 250 Mg Tablet) 1,000 mg PO NOW ONE Stop: 01/04/23 19:47 Last Admin: 01/04/23 20:27 Dose: 1,000 mg Documented By: NANCY Vital Signs Vital signs: Vital Signs - 8 hr 01/04/23 17:38 Temperature 97.7 F Pulse Rate 105 H Respiratory Rate 16 Blood Pressure 133/75 Pulse Oximetry 97 Oxygen Delivery Method Room Air MDM - Female Genitourinary Lab Data Labs: Lab Results 01/04/23 01/04/23 Range/Units 17:52 17:52 Urine RBC None seen (0-5/HPF) Urine WBC 10-30/hpf H (0-5/HPF) Ur Squamous Epith Cells 1-5 /hpf (0-5/HPF) Urine Bacteria Moderate (10-30) H (None) Ur Culture Indicated? Specimen cultured Ur Chlamydia DNA (PCR) Detected H N gonorrhoeae DNA (PCR) Not detected Point of Care Testing Test Results Positive Urine Dip Bedside Urine Glucose Negative Bedside Urine Bilirubin - Negative Bedside Urine Ketone - Negative Urine Specific [place] 1.025 Bedside Urine Occult Blood - Negative Bedside Urine pH 6.0 Bedside Urine Protein - Negative Bedside Urine Urobilinogen - Negative Bedside Urine Nitrite - Negative Bedside Urine Leukocytes +++ 500 Esterase Imaging Data US - OB: Radiologist's Impression: PROCEDURE:? US OB <= 14 WEEKS FETUS ? INDICATIONS:? CRAMPING AND SPOTTING. POLYCYSTIC OVARIAN SYNDROME. ? OUTSIDE/PRIOR DATING DATA:? Last menstrual period (LMP):? 11/04/2022.? LMP-based estimated date of delivery (STELLA):? 08/31/2023.? ? TECHNIQUE:? Real-time scanning was performed of the fetus and maternal pelvic organs, with image documentation.? Endovaginal scanning was also performed to better visualize the fetus and maternal ovaries.? ? COMPARISON:? None. ? FINDINGS:? Reported positive test.? A thickened endometrium is seen measuring 24 mm.? No gestational sac identified.? Suspected arcuate configuration.? Color flows are seen in the ovaries.? Possible hemorrhagic left adnexal cyst.? No discrete adnexal sac or mass. ? Anechoic moderate simple appearing free fluid is seen throughout the pelvis. ? IMPRESSION:? of unknown location.? Thickened endometrium measuring 24 mm.? No intrauterine gestational sac. ? Moderate free fluid is seen throughout the pelvis, simple appearing on ultrasound. ? Short interval follow-up imaging and laboratory correlation is recommended. ? Dictated by: Kaleb Cervantes M.D. on 01/04/2023 at 19:47? MDM Narrative Medical decision making narrative: 22 year female presenting today UTI like symptoms but is found to have a surprise . Ultrasound does not show an IUP likely too early no e vidence of ectopic at this time she is not clinically having severe pain. No significant bleeding. She is also found to have chlamydia she is given azithromycin encouraged her to have her partner treated as well. At this time encourage her to follow-up with OB for further care. At this time not having severe cramping or pain hCG is not done. Recommend repeat ultrasound. She also has significant leukocytes in her urine she has a Macrobid prescription for possible UTI as well. Discharge Plan Departure Patient Disposition: Home Clinical Impression: UTI (urinary tract infection), , Chlamydia Instructions: DI for Urinary Tract Infection (UTI), and STDs Activity Restrictions/Additional Instructions: *You have been diagnosed with early with UTI *What to do: At this time recommend scheduling for OBGYN. Avoid smoking alcohol marijuana and other drug use Your partner must also be treated for STDs and chlamydia. Recommend no intercourse until both of you have been fully treated. You were given azithromycin in the ED for chlamydia. *Continue to take medications as directed vitamins daily Tylenol 1000 mg every 6 hours if needed for pain Macrobid 100 mg twice a day for 5 days sent to [facility] *Follow up with your primary care provider in 2-3 days or call [phone] *Return to ER if you should have increasing abdominal pain vaginal bleeding, or any new, worsening or concerning symptoms Prescriptions: New nitrofurantoin monohyd/m-cryst [Macrobid] 100 mg capsule 100 mg PO Q12H 5 Days Qty: 10 0RF Rx Instructions: must administer with a meal/food No Action phenazopyridine [Pyridium] 200 mg tablet 200 mg PO TID 0 Days Qty: 6 0RF metronidazole 1.3 % (65 mg/5 gram) gel 1 appful vaginal BEDTIME Qty: 5 0RF tramadol 50 mg tablet 50 mg PO TID PRN Referrals: Mikhail Garcia MD [Primary Care Provider] - Stand Alone Forms: Patient Portal/API
[2023-01-04 19:34] LABS: Urine N gonorrhoeae NOT DETECTED
[2023-01-04 19:37] LABS: Urine Chlamydia DETECTED
[2023-01-04 20:22] VITALS: BP 117/70; PULSE 65; RESP 16; O2SAT 99
[2023-01-04] MEDS: AZITHROMYCIN 250 MG TABLET 1000 MG PO (20:27)
== END 2023-01-04 20:39 | disposition home or self-care (01) ==
PROVIDERS: Emergency Medicine; Emergency Provider Emergency Medicine; Family Provider Family Medicine; PCP Family Medicine
DX: N39.0 Urinary tract infection, site not specified (principal); A74.9 Chlamydial infection, unspecified; R30.0 Dysuria; Z33.1 Pregnant state, incidental
CPT/HCPCS: 76801; 76817; 81003; 81015; 81025; 87086; 87491; 87591; 99284

== ENCOUNTER 2023-01-06 10:34 | Emergency (ER) | payer OTHER, MEDICAID, SELFPAY ==
--- NOTE | 2023-01-06 10:39 | ED.GENADULT ---
HPI - General Adult General Chief complaint: Abdominal Pain Stated complaint: needs HCG levels/lower back pain Time Seen by Provider: 01/06/23 10:39 History of Present Illness HPI narrative: 22-year-old female nonsmoker is a with last menstrual cycle at the end of October presents with some midline low back pain. She was seen and evaluated a few days ago and had a urine test that was positive for , she was found to have a urinary tract infection and placed on nitrofurantoin, also she was found to have chlamydia and was treated with azithromycin. She is had no vaginal bleeding or discharge. She denies fever or chills. She is nauseated but already has ondansetron. She is not dizzy nor weak or lightheaded. She is chronic back pain at L5 and states the pain that she is having is consistent with that, it is not in her flanks. Related Data Home Medications Medication Instructions Recorded Confirmed tramadol 50 mg tablet 50 mg PO TID PRN 04/21/22 04/21/22 Previous Rx's Medication Instructions Recorded phenazopyridine 200 mg tablet 200 mg PO TID 6 doses #6 tabs 11/18/22 (Pyridium) metronidazole 1.3 % (65 mg/5 gram) 1 appful vaginal BEDTIME 1 dose #5 11/25/22 vaginal gel grams nitrofurantoin 100 mg PO Q12H 5 days #10 caps 01/04/23 monohydrate/macrocrystals 100 mg capsule (Macrobid) cefpodoxime 200 mg tablet 200 mg PO BID 10 days #20 tabs 01/06/23 Allergies Allergy/AdvReac Type Severity Reaction Status Date / Time Penicillins AdvReac Intermediate Verified 04/21/22 10:31 Review of Systems Review of Systems Narrative: GENERAL: Denies chills, fatigue, malaise, fever, sweats. HEENT: Denies sinus pain, ear pain, sore throat, difficulty swallowing, dizziness. RESPIRATORY: Denies dyspnea, cough, wheezing, hemoptysis, sputum. CARDIOVASCULAR: Denies chest pain, palpitations, orthopnea, edema, GASTROINTESTINAL: Denies nausea, vomiting, abdominal pain, diarrhea, constipation, melena. : See HPI MUSCULOSKELETAL: See HPI SKIN: Denies rash, skin lesions, or other NEUROLOGIC: Denies weakness, headache, numbness, change in speech, confusion, seizures, incoordination. PSYCHIATRIC: No concerning psychosocial issues. 12 point review of systems is negative except for those stated above Patient History Social History Smoking Status: Never smoker Smoking Status: Never smoker alcohol intake frequency: holidays/special occasions only Substance Use Type: does not use Exam Narrative Exam Narrative: GENERAL: 22[] year old patient appears stated age. Well-developed patient, in mild distress. HEAD: Atraumatic. Normocephalic. EYES: Pupils equal round and reactive. Extraocular motions intact. No scleral icterus. No injection or drainage. ENT: Nose without bleeding, purulent drainage. Throat without erythema, tonsillar hypertrophy or exudate. Airway patent. NECK: Trachea midline. Non tender CARDIOVASCULAR: Regular rate and rhythm without murmurs, gallops, or rubs. RESPIRATORY: Clear to auscultation. Breath sounds equal bilaterally. No wheezes, rales, or rhonchi. GASTROINTESTINAL: Abdomen soft, non-tender, nondistended. EXTREMITIES: No edema or joint tenderness. BACK: Mild low midline tenderness to palpation without step-offs or crepitance, no swelling or erythema. No CVA tenderness NEURO: AOx3. SKIN: No rash or erythema of visible areas Initial Vital Signs Initial Vital Signs: Vital Signs Temperature 97.8 F 01/06/23 10:40 Pulse Rate 87 01/06/23 10:40 Respiratory Rate 16 01/06/23 10:40 Blood Pressure 136/76 01/06/23 10:40 Pulse Oximetry 98 01/06/23 10:40 Oxygen Delivery Method Room Air 01/06/23 10:40 Course Orders Ordered: ED Orders 01/06/23 10:57 ABO RH Type Stat HCG Quantitative /Beta subunit Stat Vital Signs Vital signs: Vital Signs - 8 hr 01/06/23 10:40 01/06/23 12:20 Temperature 97.8 F Pulse Rate 87 87 Respiratory Rate 16 16 Blood Pressure 136/76 120/70 Pulse Oximetry 98 99 Oxygen Delivery Method Room Air Room Air Medical Decision Making Lab Data Labs: Lab Results 01/06/23 01/06/23 Range/Units 10:57 10:57 HCG, Quant 95.9 mIU/mL Blood Type B Positive MDM Narrative Medical decision making narrative: [22] year old patient presents with recently diagnosed , UTI, chlamydia Multiple etiologies for patient's symptoms considered including, but not limited to: UTI now pyelonephritis, PID, PCOS, discomfort of , chronic back pain versus other Prior Charts reviewed in our EMR Primary Historian: patient Labs reviewed and interpreted by myself: Beta quantitative hCG 95, blood type B positive Patient's history and physical exam are reassuring. She has no vaginal bleeding or discharge. Beta quantitative hCG is only 95, a repeat ultrasound is not indicated at this time given lack of significant pain or bleeding. Back pain etiologies including pyelonephritis, musculoskeletal versus other considered. She does not have CVA tenderness though a recently diagnosed UTI raises the suspicion. We discussed switching from nitrofurantoin to an option that is likely to have better parenchymal penetration. She does have an established Ob and local PCP that she will follow-up with. Given her hCG today it seems likely that she will be above the threshold of 1500 in about 7-10 days and she is encouraged to follow up at that time. Findings and discharge diagnosis discussed with patient/family followed by verbalization of understanding Return precautions discussed with patient/family whom verbalize understanding of diagnosis and plan Discharge Plan Departure Patient Disposition: Home Clinical Impression: UTI (urinary tract infection), Instructions: DI for Urinary Tract Infection (UTI) Activity Restrictions/Additional Instructions: *You have been diagnosed with [urinary tract infection in and low back pain. As we discussed we will change your antibiotic today and a new prescription has been sent to your pharmacy. Your beta quantitative hCG today is 95] *What to do: * please stop taking the nitrofurantoin and start the new antibiotic today Please continue to take your regular medications as directed. [x ] New medication prescriptions sent to your pharmacy: [ [facility]] [ ] New medication written as a paper prescription [ ] No new medications given * as we discussed, we would expect your hCG to be above the threshold for an appropriate ultrasound in about 7-10 days. You can follow-up with your primary care provider or your OB doc to arrange this. *Return to Emergency Department if you should have any new, worsening or concerning symptoms, such as [fever greater than 101 F, shaking chills, worsening pain, persistent vomiting or other bothersome symptoms] Prescriptions: New cefpodoxime 200 mg tablet 200 mg PO BID 10 Days Qty: 20 0RF Rx Instructions: must administer with a meal/food No Action phenazopyridine [Pyridium] 200 mg tablet 200 mg PO TID 0 Days Qty: 6 0RF metronidazole 1.3 % (65 mg/5 gram) gel 1 appful vaginal BEDTIME Qty: 5 0RF nitrofurantoin monohyd/m-cryst [Macrobid] 100 mg capsule 100 mg PO Q12H 5 Days Qty: 10 0RF Rx Instructions: must administer with a meal/food tramadol 50 mg tablet 50 mg PO TID PRN Referrals: Miscellaneous,Doctor, MD [Primary Care Provider] - Stand Alone Forms: Patient Portal/API
[2023-01-06 10:40] VITALS: BP 136/76; PULSE 87; RESP 16; TEMP 36.6; O2SAT 98; BMI 29.5
[2023-01-06 11:36] LABS: HCG Quantitative /Beta subunit 95.9 mIU/mL
[2023-01-06 12:20] VITALS: BP 120/70; PULSE 87; RESP 16; O2SAT 99
== END 2023-01-06 12:44 | disposition home or self-care (01) ==
PROVIDERS: Emergency Provider Emergency Medicine; Family Provider Family Medicine
DX: O23.40 Unspecified infection of urinary tract in pregnancy, unspecified trimester (principal); N39.0 Urinary tract infection, site not specified; Z3A.00 Weeks of gestation of pregnancy not specified
CPT/HCPCS: 36415; 84702; 86900; 86901; 99283

== ENCOUNTER 2023-01-13 22:19 | Emergency (ER) | payer OTHER, MEDICAID, SELFPAY ==
[2023-01-13 22:22] VITALS: BP 135/79; PULSE 113; RESP 16; TEMP 36.8; O2SAT 98; BMI 29.5
[2023-01-13 23:32] LABS: Hematocrit 37.2 % (36-46); Hemoglobin 12.5 g/dL (12.0-16.0); Mean Corpuscular HGB Conc 33.6 % (30-36); Mean Corpuscular Hemoglobin 27.7 PG (26-34); Mean Corpuscular Volume 82.4 fL (80-100); Platelet Count 289 X10^3/uL (150-400); Red Blood Cell Count 4.52 X10^6/uL (4.0-5.2); Red Cell Distribution Width 13.2 % (11.6-14.8); White Blood Cell Count 16.6 X10^3/uL (4.5-11.0)
[2023-01-13 23:34] LABS: Add Manual Diff / Slide Review YES; BUN Creatinine Ratio 13.9 (6-22); Blood Urea Nitrogen 10 mg/dL (7-17); Calcium 9.3 mg/dL (8.4-10.2); Carbon Dioxide 23 mmol/L (22-32); Chloride 103 mmol/L (98-107); Estimated Glomerular Filt Rate > 60 mL/min (>60); Glucose 106 mg/dL (70-100); HEMOLYSIS < 15 (0-50); Potassium 3.4 mmol/L (3.4-5.1); Sodium 137 mmol/L (137-145)
--- NOTE | 2023-01-14 00:06 | DI.US.S_ITS ---
PROCEDURE: US OB <= 14 WEEKS FETUS INDICATIONS: LEFT PELVIC PAIN OUTSIDE/PRIOR DATING DATA: Last menstrual period (LMP): 11/24/2022. LMP-based estimated date of delivery (STELLA): 08/31/2023. TECHNIQUE: Real-time scanning was performed of the fetus and maternal pelvic organs, with image documentation. Endovaginal scanning was also performed to better visualize the fetus and maternal ovaries. COMPARISON: [facility], , OB <= 14 WEEKS FETUS, 01/04/2023, 18:32. FINDINGS: Embryo: There is an intrauterine cystic lesion which may represent a gestational sac. This demonstrates a mean gestational sac diameter of 0.5 cm corresponding to gestational age of 5 weeks 2 days. No yolk sac or pole identified. Maternal organs: The right ovary was not discretely visualized. Left ovary appears within normal size limits. No adnexal masses identified. IMPRESSION: 1. Intrauterine cystic lesion may represent a gestational sac or pseudogestational sac. This demonstrates a mean sac diameter corresponding to a calculated gestational age of 5 weeks 2 days, discordant with patient's expected dates by LMP of 7 weeks 2 days. The findings are suggestive of a nonviable with a spontaneous in progress. However, the differential includes an early with incorrect LMP or a pseudogestational sac in the setting of an ectopic . Clinical follow-up is recommended as well as a repeat ultrasound if indicated. We strive to produce accurate, complete, and clear reports of imaging services. To assist us in improving patient care, this report was composed using standard report templates and voice recognition software. Therefore, it may contain abnormal punctuation, insertions and/or omissions. Occasional wrong-word or sound-alike substitutions may occur. Though we review the report and make efforts to correct it, we do recommend that the report be read carefully in proper context to recognize any text inaccuracies. Dictated by: Steve Cid M.D. on 01/14/2023 at 2:20 Approved by: Steve Cid M.D. on 01/14/2023 at 2:47
[2023-01-14 00:15] LABS: Bacteria Urine Occasional (0-1); Culture Indicated Urine Specimen Cultured; RBC Urine None Seen (0-5/HPF); Squamous Epithelial Cell Urine 1-5 /HPF (0-5/HPF); WBC Urine 10-30/HPF (0-5/HPF)
--- NOTE | 2023-01-14 00:37 | ED_ITS ---
HPI - Back Pain/Injury General Chief Complaint: Back Pain/Injury Stated Complaint: Lower back pain, Ovarian pain Time Seen by Provider: 01/13/23 22:50 Source: patient Mode of arrival: Ambulatory Limitations: no limitations History of Present Illness HPI Narrative: Patient is a 22-year-old female. Was seen here in the emergency department several days ago. Was found to have chlamydia and was treated with azithro mycin. Also found to have a urinary tract infection initially started on Macrobid. Was also found to be . Her hCG quant was quite low. Ultrasound showed no intrauterine but this is not surprising given her quantitative level. Patient was seen a couple days afterwards. She was switched from Macrobid to Keflex. She is been on this. It was prescribed for 10 days. She comes emergency department today stating that she is still having some left-sided adnexal pain. Some lower back pain. No vaginal bleeding. So having some dysuria. Related Data Home Medications Medication Instructions Recorded Confirmed tramadol 50 mg tablet 50 mg PO TID PRN 04/21/22 04/21/22 Previous Rx's Medication Instructions Recorded phenazopyridine 200 mg tablet 200 mg PO TID 6 doses #6 tabs 11/18/22 (Pyridium) metronidazole 1.3 % (65 mg/5 gram) 1 appful vaginal BEDTIME 1 dose #5 11/25/22 vaginal gel grams cefpodoxime 200 mg tablet 200 mg PO BID 10 days #20 tabs 01/06/23 Allergies Allergy/AdvReac Type Severity Reaction Status Date / Time Penicillins AdvReac Intermediate Hives Verified 01/13/23 22:22 Review of Systems Constitutional Constitutional: Reports system reviewed and no additional complaints, except as documented Gastrointestinal Gastrointestinal: Reports system reviewed and no additional complaints, except as documented Genitourinary Genitourinary: Reports system reviewed and no additional complaints, except as documented Musculoskeletal Musculoskeletal: Reports system reviewed and no additional complaints, except as documented Patient History Social History Smoking Status: Never smoker Smoking Status: Never smoker alcohol intake frequency: holidays/special occasions only Substance Use Type: does not use Exam Initial Vital Signs Initial Vital Signs: Vital Signs Temperature 98.2 F 01/13/23 22:22 Pulse Rate 113 H 01/13/23 22:22 Respiratory Rate 16 01/13/23 22:22 Blood Pressure 135/79 01/13/23 22:22 Pulse Oximetry 98 01/13/23 22:22 Oxygen Delivery Method Room Air 01/13/23 22:22 Const General: cooperative and comfortable HENMT Head: normal to inspection and normocephalic Resp Effort & Inspection: normal respiratory effort Cardio Rate: regular rate GI Inspection: normal to inspection and non-distended Palpation: tender Back/Spine/Pelvis Back: No CVA tenderness Skin General: no rashes or lesions noted Extrem General: normal to inspection and capillary refill normal Course Orders Ordered: ED Orders 01/13/23 22:30 Urine Culture Stat Urine Microscopic Stat 01/13/23 23:09 Basic Metabolic Panel Stat Complete Blood Count AUTO DIFF Stat HCG Quantitative /Beta subunit Stat 01/14/23 00:06 US OB <= 14 weeks fetus Stat Vital Signs Vital signs: Vital Signs - 8 hr 01/13/23 22:22 01/14/23 01:12 Temperature 98.2 F Pulse Rate 113 H 79 Respiratory Rate 16 16 Blood Pressure 135/79 98/56 L Pulse Oximetry 98 98 Oxygen Delivery Method Room Air Room Air MDM - Back Pain/Injury Medical Records Attestation: I reviewed the patient's medical records. Lab Data Attestation: I reviewed the patient's lab results. 01/13/23 23:09 01/13/23 23:09 Labs: Lab Results 01/13/23 01/13/23 01/13/23 Range/Units 22:30 23:09 23:09 WBC 16.6 H (4.5-11.0) X10^3/uL RBC 4.52 (4.0-5.2) X10^6/uL Hgb 12.5 (12.0-16.0) g/dL Hct 37.2 (36-46) % MCV 82.4 (80-100) fL MCH 27.7 (26-34) PG MCHC 33.6 (30-36) % RDW 13.2 (11.6-14.8) % Plt Count 289 (150-400) X10^3/uL Neut % (Auto) Not Reportable Lymph % (Auto) Not Reportable Sheridan % (Auto) Not Reportable Eos % (Auto) Not Reportable Baso % (Auto) Not Reportable Lymph # (Auto) Not Reportable Sheridan # (Auto) Not Reportable Baso # (Auto) Not Reportable Total Counted 100 Seg Neutrophils % 68.0 (38-70) % Band Neutrophils % 1.0 L (3-7) % Lymphocytes % (Manual) 20.0 L (25-45) % Monocytes % (Manual) 11.0 (2-11) % Neutrophils # (Manual) 38507 H (2678-2334) /uL RBC Morphology Normal morphology Sodium 137 (137-145) mmol/L Potassium 3.4 (3.4-5.1) mmol/L Chloride 103 (98-107) mmol/L Carbon Dioxide 23 (22-32) mmol/L BUN 10 (7-17) mg/dL Creatinine 0.72 (0.52-1.04) mg/dL Estimated GFR > 60 (>60) mL/min BUN/Creatinine Ratio 13.9 (6-22) Glucose 106 H (70-100) mg/dL Calcium 9.3 (8.4-10.2) mg/dL HCG, Quant 2644.0 mIU/mL Urine RBC None seen (0-5/HPF) Urine WBC 10-30/hpf H (0-5/HPF) Ur Squamous Epith Cells 1-5 /hpf (0-5/HPF) Urine Bacteria Occasional (0-1) (None) Ur Culture Indicated? Specimen cultured Urine Dip Bedside Urine Glucose Negative Bedside Urine Bilirubin - Negative Bedside Urine Ketone - Negative Urine Specific Mchenry 1.03 Bedside Urine Occult Blood - Negative Bedside Urine pH 6.0 Bedside Urine Protein - Negative Bedside Urine Urobilinogen - Negative Bedside Urine Nitrite - Negative Bedside Urine Leukocytes +/- 15 Esterase Imaging Data US - OB: Radiologist's Impression: PROCEDURE:? US OB <= 14 WEEKS FETUS ? INDICATIONS:? LEFT PELVIC PAIN ? OUTSIDE/PRIOR DATING DATA:? Last menstrual period (LMP):? 11/24/2022.? LMP-based estimated date of delivery (STELLA):? 08/31/2023.? ? TECHNIQUE:? Real-time scanning was performed of the fetus and maternal pelvic organs, with image documentation.? Endovaginal scanning was also performed to better visualize the fetus and maternal ovaries.? ? COMPARISON:? [facility], , US OB <= 14 WEEKS FETUS, 01/04/2023, 18:32. ? FINDINGS:? ? Embryo:? There is an intrauterine cystic lesion which may represent a gestational sac.? This demonstrates a mean gestational sac diameter of 0.5 cm corresponding to gestational age of 5 weeks 2 days.? No yolk sac or pole identified. ? Maternal organs:? The right ovary was not discretely visualized.? Left ovary appears within normal size limits.? No adnexal masses identified. ? ? IMPRESSION:? ? 1. Intrauterine cystic lesion may represent a gestational sac or pseudogestational sac.? This demonstrates a mean sac diameter corresponding to a calculated gestational age of 5 weeks 2 days, discordant with patient's expected dates by LMP of 7 weeks 2 days.? The findings are suggestive of a nonviable with a spontaneous in progress. ?However, the differential includes an early with incorrect LMP or a pseudogestational sac in the setting of an ectopic .? Clinical follow- up is recommended as well as a repeat ultrasound if indicated.? MDM Narrative Medical decision making narrative: Patient is Rh positive. Her hCG quantitative level his rising appropriately. She does have a leukocytosis and also bacteria and white blood cells in her urine but she is currently on antibiotics. Ultrasound today shows gestational sac but no yolk sac. Corresponds more to 5 weeks and 2 days rather than 7 weeks and 2 days. Patient states that it is very possible that her EGA is 5 weeks rather than 7 based on her presumed day of conception. The ultrasound does not show any signs of ovarian torsion. No signs of tubo-ovarian abscess. Ectopic is still a possibility given the fact that there was no yolk sac seen on the ultrasound. However there was no other secondary signs of ectopic seen on the ultrasound. Had a long discussion with the patient regarding all of this. I did tell her that she does need a follow-up in 48 hours from now. Told her that she needs to return to the emergency department sooner than that if her symptoms worsen. She understands the lack of a definitive location of the . She expressed understanding and agreement. Discharge Plan Departure Patient Disposition: Home Clinical Impression: Abdominal pain affecting Instructions: DI for Abdominal Pain -- Early Activity Restrictions/Additional Instructions: Continue to take all of your medications as directed specifically the antibiotics. You do need a follow-up for repeat hCG level in 48 hours from now. This can be done by either your primary doctor were the your OB provider. If needed you can return to the emergency department for this as well. Return to the emergency department sooner that for new or worsening symptoms. Prescriptions: No Action phenazopyridine [Pyridium] 200 mg tablet 200 mg PO TID 0 Days Qty: 6 0RF metronidazole 1.3 % (65 mg/5 gram) gel 1 appful vaginal BEDTIME Qty: 5 0RF cefpodoxime 200 mg tablet 200 mg PO BID 10 Days Qty: 20 0RF Rx Instructions: must administer with a meal/food tramadol 50 mg tablet 50 mg PO TID PRN Referrals: Miscellaneous,Doctor, MD [Primary Care Provider] - Stand Alone Forms: Patient Portal/API
[2023-01-14 01:12] VITALS: BP 98/56; PULSE 79; RESP 16; O2SAT 98
[2023-01-14 01:45] LABS: Neutrophils Absolute Manual 11454 /uL (3000-5900); RBC Morphology Normal Morphology; Total Cells Counted 100
[2023-01-14 03:12] VITALS: BP 108/64; PULSE 85; RESP 16; O2SAT 98
== END 2023-01-14 03:13 | disposition home or self-care (01) ==
PROVIDERS: Emergency Provider Emergency Medicine; Family Provider Family Medicine
DX: O26.91 Pregnancy related conditions, unspecified, first trimester (principal); R10.2 Pelvic and perineal pain; Z3A.01 Less than 8 weeks gestation of pregnancy
CPT/HCPCS: 36415; 76801; 76817; 80048; 81003; 81015; 84702; 85007; 85025; 87086; 99282; 99284

== ENCOUNTER → 2023-01-16 15:07 | Outpatient (CLI) | payer OTHER, MEDICAID, SELFPAY ==
[2023-01-16 16:13] LABS: HCG Quantitative /Beta subunit 3410.2 mIU/mL
== END ==
PROVIDERS: Family Provider Family Medicine; Referring Provider Nurse Practitioner Family; Visit Provider Nurse Practitioner Family
DX: Z34.90 Encounter for supervision of normal pregnancy, unspecified, unspecified trimester (principal)
CPT/HCPCS: 36415; 84702

== ENCOUNTER → 2023-01-19 14:41 | Outpatient (CLI) | payer OTHER, MEDICAID, SELFPAY ==
[2023-01-19 16:48] LABS: HCG Quantitative /Beta subunit 3633.3 mIU/mL
== END ==
PROVIDERS: Specialist; Family Provider Family Medicine; Referring Provider Obstetrics & Gynecology; Visit Provider Obstetrics & Gynecology
DX: Z34.90 Encounter for supervision of normal pregnancy, unspecified, unspecified trimester (principal)
CPT/HCPCS: 36415; 84702

== ENCOUNTER 2023-02-09 10:03 | Day surgery (SDC) | payer OTHER, MEDICAID, SELFPAY ==
[2023-02-08 09:36] VITALS: BMI 25.8
[2023-02-09] VITALS (7 sets, daily range): BP systolic 116–141; BP diastolic 63–79; PULSE 74–105; RESP 11–97; TEMP 36.2–36.7; O2SAT 16–100; BMI 30.2
--- NOTE | 2023-02-09 | PATH_ITS ---
[facility] Accession Number: [id number] No. of containers..01 Tissue . 01 Material submitted: . product of conception - PRODUCTS OF CONCEPTION . 01 Diagnosis: A. Products of Conception, Removal: Immature chorionic villi consistent with products of conception. Background decidua and gestational endometrium. Fibrin and necroinflammatory debris. Negative for significant proliferation and malignancy. MRV 02/22/2023 0540 Local . 01 Electronically signed: . Dimple Fenton MD, Pathologist NPI- [id number] . 01 Gross description: . The specimen is received in formalin labeled with the patient's name, , and products of conception, consists of multiple barbour, variably spongy to membranous soft tissue fragments admixed with hemorrhagic material aggregating to 7.3 x 5.3 x 1.5 cm. No tissue is identified. Railroad Brakeman sections are submitted in cassettes A1-A2. ([id number]) /MRV 02/15/2023 1856 Local . 01 Pathologist provided ICD-10: O03.4 . 01 CPT . 692516 Specimen Comment: A courtesy copy of this report has been sent to [phone] Performed at: 01 [facility] [address] [place] [address] [address], [place], [place] [id number] MD Steve Hernandez MD Phone: [phone]
[2023-02-09] MEDS: LACTATED RINGERS 1,000 ML 100 ML IV (10:48)
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
--- NOTE | 2023-02-09 11:02 | PM.PREOP ---
Pre-operative Note COVID-19 Criteria for continued procedure: Non-surgical alternatives not available or appropriate per current SOC Interval Note History & Physical reviewed/Exam performed by Physician: Yes Changes to H&P: No H&P completed within 30 days and has changed as indicated here:: 02/09/23
[2023-02-09] MEDS: ACETAMINOPHEN 325 MG TABLET 975 MG PO (11:09)
--- NOTE | 2023-02-09 11:39 | SUR.OPER ---
Lithotomy on padded OR bed, head on pillow, arms secured on padded arm boards at <90 degrees abduction. Legs secured in padded yellow fins stirrups.
--- NOTE | 2023-02-09 11:53 | PM.GYNOP.1 ---
Operative Date/Time/Diagnoses Date of procedure: 02/09/23 Time of procedure: 11:53 Pre-op diagnosis: Missed at 7 weeks 5 days Post-op diagnosis: same Procedure & Clinicians Procedure: Procedures Operation Date: 02/09/23 11:15 Actual Procedure Side Surgeon arnel Domínguez MD Indications: Missed at 7 weeks 5 days Surgeon: Chiara Domínguez Anesthesia Type: General (LMA) Operative Notes Findings: 8 week size anteverted uterus Large amount of products of conception Closure Type: not applicable Specimen(s): products of conception Estimated blood loss (mL): 75 Blood products transfused: none Procedure in detail: After informed consent was obtained, the patient was taken to the operating room where she was placed in the dorsal supine position. After adequate LMA general anesthesia was achieved, she was placed in the dorsal lithotomy position, and prepped and draped in the usual sterile fashion. A time-out was performed. A bivalve speculum was placed into the vagina and the anterior lip of the cervix was grasped with a single-tooth tenaculum the cervical os was sequentially dilated to the # 9 Hegar dilator. The #8 curved plastic curette passed easily into the endometrial cavity. Several passes with suction revealed a large amount of fluid and blood. On the third pass there was a large amount of tissue. Several more passes revealed blood only. The suction curette was removed from the uterus. The single-tooth tenaculum was removed from the anterior lip of the cervix. The bivalve speculum was removed from the vagina. Sponge, lap, and instrument counts were correct x2. The patient tolerated the procedure well, and was taken to PACU in stable condition. Complications: none Post-operative Condition: stable Disposition: PACU Plan for aftercare: Home after recovery
[2023-02-09] MEDS: ONDANSETRON 4 MG/2 ML INJ IV (11:59)
[2023-02-09] MEDS: OXYCODONE/ACETAMINOPHEN 5/325 TABLET 1 TAB PO (12:13)
== END 2023-02-09 12:44 | disposition home or self-care (01) ==
PROVIDERS: Family Provider Family Medicine; PCP Physician Assistant; Referring Provider Obstetrics & Gynecology; Visit Provider Obstetrics & Gynecology
PROC: (CPT 58120; principal; 2023-02-09 11:15)
DX: O02.1 Missed abortion (principal); Z3A.01 Less than 8 weeks gestation of pregnancy
CPT/HCPCS: 59820; 36415; 86850; 86900; 86901; J2405; J3010

== ENCOUNTER → 2023-02-24 14:21 | Outpatient (CLI) | payer OTHER, MEDICAID, SELFPAY ==
[2023-02-26 22:16] LABS: Urine N gonorrhoeae NOT DETECTED
[2023-02-26 22:32] LABS: Urine Chlamydia NOT DETECTED
== END ==
PROVIDERS: Family Provider Family Medicine; PCP Physician Assistant; Visit Provider Obstetrics & Gynecology
DX: N89.8 Other specified noninflammatory disorders of vagina (principal); R30.0 Dysuria; Z11.3 Encounter for screening for infections with a predominantly sexual mode of transmission
CPT/HCPCS: 87086; 87491; 87591

== ENCOUNTER 2023-10-10 20:45 | Emergency (ER) | payer OTHER, MEDICAID, SELFPAY ==
[2023-10-10 20:57] VITALS: BP 168/85; PULSE 85; RESP 16; TEMP 36.6; O2SAT 100; BMI 31.4
[2023-10-10 21:52] LABS: Add Manual Diff / Slide Review NO; Basophils Absolute Auto 0 /uL (0-100); Basophils Percent Auto 0.4 % (0-2); Eosinophils Absolute Auto 300 /uL (0-450); Eosinophils Percent Auto 2.4 % (2-4); Hematocrit 40.5 % (36-46); Hemoglobin 13.5 g/dL (12.0-16.0); Lymphocytes Absolute Auto 2500 /uL (1100-4500); Lymphocytes Percent Auto 22.3 % (25-40); Mean Corpuscular HGB Conc 33.3 % (30-36); Mean Corpuscular Hemoglobin 27.8 PG (26-34); Mean Corpuscular Volume 83.5 fL (80-100); Monocytes Absolute Auto 900 /uL (0-900); Monocytes Percent Auto 7.9 % (3-14); Neutrophils Absolute Auto 7500 /uL (1500-7000); Platelet Count 299 X10^3/uL (150-400); Red Blood Cell Count 4.84 X10^6/uL (4.0-5.2); Red Cell Distribution Width 13.1 % (11.6-14.8); White Blood Cell Count 11.1 X10^3/uL (4.5-11.0)
[2023-10-10 22:05] LABS: Alanine Aminotransferase 22 IU/L (<35); Albumin 4.5 g/dL (3.5-5.0); Albumin Globulin Ratio 1.5 (1.0-2.8); Alkaline Phosphatase 60 U/L (38-126); Aspartate Aminotransferase 19 IU/L (14-36); BUN Creatinine Ratio 14.7 (6-22); Bilirubin Total 0.5 mg/dL (0.2-1.3); Blood Urea Nitrogen 11 mg/dL (7-17); Calcium 9.6 mg/dL (8.4-10.2); Carbon Dioxide 26 mmol/L (22-32); Chloride 107 mmol/L (98-107); Estimated Glomerular Filt Rate > 60 mL/min (>60); Globulin 3.1 g/dL (1.7-4.1); Glucose 89 mg/dL (70-100); HEMOLYSIS < 15 (0-50); Lipase 87 U/L (23-300); Potassium 3.7 mmol/L (3.4-5.1); Sodium 141 mmol/L (137-145); Total Protein 7.6 g/dL (6.3-8.2)
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
[2023-10-10] MEDS: MAG HYDROX/ALUMINUM/SIMETH SUS 20 ML, LIDOCAINE VISCOUS 2% 15 ML PO (22:40)
[2023-10-11] VITALS: BP 126/96; PULSE 80; RESP 16; O2SAT 98
== END 2023-10-11 00:04 | disposition home or self-care (01) ==
PROVIDERS: Emergency Provider Emergency Medicine; Family Provider Family Medicine; PCP Physician Assistant
DX: R10.11 Right upper quadrant pain (principal)
CPT/HCPCS: 36415; 76705; 80053; 81003; 81025; 83690; 85025; 99284

== ENCOUNTER → 2024-01-17 17:58 | Outpatient (CLI) | payer OTHER, MEDICAID, SELFPAY ==
--- NOTE | 2024-01-17 18:00 | DI.RAD.S_ITS ---
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 COMPARISON: None. FINDINGS: Surgical changes and devices: None. Lungs and pleura: No airspace disease. No pleural effusions Mediastinum: Normal heart size Bones and chest wall: Unremarkable IMPRESSION: No acute radiographic abnormality Dictated by: Kaleb Cervantes M.D. on 01/17/2024 at 19:00 Approved by: Kaleb Cervantes M.D. on 01/17/2024 at 19:00
== END ==
PROVIDERS: Family Provider Family Medicine; Referring Provider Student in an Organized Health Care Education/Training Program; Visit Provider Student in an Organized Health Care Education/Training Program
DX: R05.8 Other specified cough (principal); Z77.098 Contact with and (suspected) exposure to other hazardous, chiefly nonmedicinal, chemicals
CPT/HCPCS: 71046

== ENCOUNTER → 2024-01-18 17:45 | Outpatient (CLI) | payer OTHER, MEDICAID, SELFPAY ==
[2024-01-18 18:58] LABS: Influenza A - CEPHEID Flu A NEGATIVE (NEGATIVE); Influenza B - CEPHEID Flu B NEGATIVE (NEGATIVE); Respiratory Syncytial Virus Negative (Negative)
[2024-01-18 19:00] LABS: COVID-19 CEPHEID 4-PLEX PCR Negative (Negative)
== END ==
PROVIDERS: Family Provider Family Medicine; Visit Provider Student in an Organized Health Care Education/Training Program
DX: R05.9 Cough, unspecified (principal)
CPT/HCPCS: 87635; 87400 ×2; 87420; 0241U

== ENCOUNTER → 2024-02-28 18:33 | Outpatient (CLI) | payer OTHER, MEDICAID, SELFPAY | PROVIDERS: Family Provider Family Medicine; Visit Provider Nurse Practitioner Family | DX: R30.0 Dysuria (principal) | CPT/HCPCS: 87086; 87210 ==